=== PATIENT | male | born 1965 | race Caucasian/White ===

== ENCOUNTER 2021-01-22 11:42 | Outpatient (RCR) | payer OTHER, SELFPAY ==
[2021-01-22] MEDS: COVID-19 VACC, MRNA(PFIZER)/PF 30 MCG/0.3 ML SYRINGE IM (09:57)
[2021-02-12] MEDS: COVID-19 VACC, MRNA(PFIZER)/PF 30 MCG/0.3 ML SYRINGE IM (09:54)
== END 2021-01-22 23:59 ==
LOC: IMMUN 11:42
PROVIDERS: Referring Provider Family Medicine; Visit Provider Family Medicine
DX: Z23 Encounter for immunization (principal)
CPT/HCPCS: 0001A; 0002A; 91300